=== PATIENT | male | born 1950 | race Caucasian/White ===

== ENCOUNTER 2021-04-12 13:09 | Emergency (ER) | payer MEDICARE, SELFPAY ==
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
[2021-04-12 14:19] VITALS: BP 142/71; PULSE 56; RESP 18; TEMP 36.6; O2SAT 94; BMI 25.7
[2021-04-12 14:26] VITALS: BP 117/68; PULSE 47; RESP 18; TEMP 36.6; O2SAT 98
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
[2021-04-12 16:30] VITALS: BP 117/68; PULSE 47; RESP 18; TEMP 36.6; O2SAT 98
== END 2021-04-12 16:30 | disposition home or self-care (01) ==
PROVIDERS: Emergency Provider Physician Assistant
DX: M54.5 Low back pain (principal); M54.2 Cervicalgia; V89.2XXA Person injured in unspecified motor-vehicle accident, traffic, initial encounter; Y92.410 Unspecified street and highway as the place of occurrence of the external cause
CPT/HCPCS: 72040; 72100; 99282

== ENCOUNTER 2021-04-29 11:00 | Outpatient (CLI) | payer MEDICARE, SELFPAY ==
--- NOTE | 2021-04-29 11:06 | XR_ITS ---
WS: [id number] THORACIC SPINE TECHNIQUE: AP and lateral views are performed. HISTORY: M54.9 - Dorsalgia, unspecified COMPARISON: None available. Moderate RIGHT curvature thoracic spine. Increase in thoracic kyphosis. Pedicles are all identified. No fractures. Fibrotic changes are noted over the LEFT thorax. XR/XR thoracic spine 3V* [id number] IMPRESSION: Moderate RIGHT curvature thoracic spine. No acute fractures identified.
--- NOTE | 2021-04-29 11:06 | XR_ITS ---
WS: [id number] RIGHT ELBOW: 3 VIEW(S) TECHNIQUE: AP, oblique and lateral. HISTORY: M25.529 - Pain in unspecified elbow COMPARISON: 02/17/2020 No acute fractures or dislocation. Soft tissue prominence over the olecranon has resolved. There is a hook like osteophyte involving the coronoid process. No soft tissue abnormality. XR/XR elbow RT min 3V* [id number] IMPRESSION: Hooklike osteophyte involving the coronoid process. No joint effusion.
== END 2021-04-29 11:01 | disposition home or self-care (01) ==
PROVIDERS: PCP Nurse Practitioner Family; Visit Provider Nurse Practitioner Family
DX: M25.521 Pain in right elbow (principal); M54.6 Pain in thoracic spine
CPT/HCPCS: 72072; 73080

== ENCOUNTER 2021-05-30 12:25 | Day surgery (SDC) | payer MEDICARE, SELFPAY ==
[2021-05-30] VITALS (8 sets, daily range): BP systolic 112–167; BP diastolic 69–95; PULSE 50–74; RESP 16–18; TEMP 36.1–36.5; O2SAT 95–98; BMI 24.4
--- NOTE | 2021-05-30 14:10 | ED_ITS ---
HPI - General Adult General: Chief complaint: Airway/Esophagus Foreign Body Stated complaint: FOOD BOLUS STUCK IN THROAT: SENT BY PCP Time Seen by Provider: 05/30/21 12:43 Source: patient Mode of arrival: ambulatory Limitations: no limitations History of Present Illness: HPI narrative: Patient states he is swallowing some meat approximately 3 days ago and states he is unable to pass meat in his distal esophagus. He reports that he has had 10 inches of his esophagus removed when he was a child after he drank lye at 1 years of age. He states he has had chronic problems with food sticking in his esophagus at the junction of the repair. States he is usually able to pass this without any intervention. He states he is unable to get food or fluids down now. Denies any other problems. Onset (ago): day(s) (3) Location: neck (Esophagus) Radiation: non-radiation Severity: moderate Severity scale (1-10): 1 Quality: aching Pain Consistency: constant Relieving factors: none Exacerbating factors: none Associated symptoms: Deny chest pain, confusion, cough, diaphoresis, decreased appetite, dyspnea, fevers/chills, headache(s), malaise, nausea, rash, palpitations, short of breath, syncope, vomiting or weakness Treatments prior to arrival: none Review of Systems Const: Denies: malaise or diaphoresis Eyes: Denies: change in vision ENMT: Reports: other (Inability to swallow due to food bolus); Denies: throat pain Card: Denies: chest pain, palpitations or syncope Resp: Denies: dyspnea GI: Denies: nausea or vomiting : Denies: flank pain Musc: Denies: neck pain or back pain Skin/Breast: Denies: rash Neuro: Denies: headache(s) or confusion Psych: Denies: anxiety Federico/Lymph: Denies: enlarged lymph nodes PFSH ED PFSH: Medical History Esophageal obstruction due to food impaction Surgical History H/O esophagogastroduodenoscopy (05/30/21) For food impaction History of esophageal surgery ate lye at age 2 had to have esophagel surgery Social History Smoking and tobacco status: never smoked Physical Exam Const: COMMON NORMALS: no acute distress, patient oriented x3, no limitations and well nourished GENERAL APPEARANCE: cooperative OTHER: Unable to swallow water. HENMT: COMMON NORMALS: normocephalic and atraumatic HEAD & SCALP: normocephalic and atraumatic FACE & SINUS: normal facial exam MOUTH: Normal oral and palatal mucosa present Eye: COMMON NORMALS: EOMs intact bilaterally Neck/C-Spine: COMMON NORMALS: full ROM, no lymphadenopathy, supple and no meningeal signs GENERAL: Yes normal visual inspection, Yes trachea midline and No anterior neck swelling Lymph: LYMPHATIC: no lymphadenopathy noted Chest: COMMONS NORMALS: normal inspection of the chest and normal palpation of entire chest wall CHEST: No Ecchymosis present and No rash Resp: COMMON NORMALS: normal respiratory effort, No retractions and clear to auscultation bilaterally EFFORT & INSPECTION: No respiratory distress AUSCULTATION: clear to auscultation bilaterally Cardio: COMMON NORMALS: regular rate, regular rhythm and Peripheral pulses 2+ throughout JUGULAR VENOUS DISTENTION: no JVD RATE: regular rate RHYTHM: regular rhythm PERIPHERAL PULSES: Peripheral pulses 2+ throughout GI: COMMON NORMALS: Normal to inspection, nondistended, normoactive bowel sounds present and non-tender : COMMON NORMALS: Yes no CVA tenderness BLADDER/KIDNEY EXAM: Yes no CVA tenderness Back/Pelvis: COMMON NORMALS: no CVA tenderness Extremity: COMMON NORMALS: normal to inspection, full ROM and capillary refill normal Neuro: COMMON NORMALS: patient oriented x3, CN's II-XII intact bilaterally, no focal motor deficits and no sensory deficits noted MENINGEAL SIGNS: Yes no meningeal signs Psych: COMMON NORMALS: mental status grossly normal and Normal thought process present THOUGHT PROCESS: Normal thought process present Skin: COMMON NORMALS: no rashes or lesions noted and no wounds GENERAL SKIN EXAM: no rashes or lesions noted Course Vital Signs: Vital signs: Vital Signs Temperature 97.7 F 05/30/21 12:34 Pulse Rate 60 05/30/21 16:30 Respiratory Rate 16 05/30/21 14:27 Blood Pressure 167/73 05/30/21 16:30 Pulse Oximetry 95 05/30/21 16:30 MDM - General Adult MDM Narrative: Medical decision making narrative: First attempt with glucagon was not successful. Patient still unable to swallow water. We will try atropine. 1525: no change after atropine. d/w dr. cordero windows application developer. he states he does not perform foreign body removal from the esophagus. Will need to refer to another provider that does this procedure. Dr. Alvarez will take the patient to endoscopy lab and discharge patient from there. Discharge Plan Discharge Clinical Impression: Esophageal foreign body Qualifiers: Encounter type: initial encounter Qualified Code(s): T18.108A - Unspecified foreign body in esophagus causing other injury, initial encounter Condition: Stable Coding Level of Care Code ED Systems Development Consultant for Chg Fwd Exam Comprehensive
[2021-05-30] MEDS: sodium chloride 0.9% 1,000 ML 30 ML IV (16:20)
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
--- NOTE | 2021-05-30 17:28 | P.PCN_ITS ---
PACU note PACU note: VSS, Good respiratory effort, report to MIX CHEMIST Post-Anesthesia Exam: awake
--- NOTE | 2021-05-30 17:28 | PM.PACU ---
PACU note PACU note: VSS, Good respiratory effort, report to VP PURCHASING Post-Anesthesia Exam: awake
== END 2021-05-30 17:54 | disposition home or self-care (01) ==
LOC: ER 15:40 → GILAB 16:21
PROVIDERS: Emergency Provider Family Medicine; PCP Nurse Practitioner Family; Visit Provider Surgery
PROC: 0DJ08ZZ Inspection of Upper Intestinal Tract, Via Natural or Artificial Opening Endoscopic (ICD-10-PCS; CPT 43235; principal; 2021-05-30 17:00)
DX: K22.2 Esophageal obstruction (principal); T17.228A Food in pharynx causing other injury, initial encounter
CPT/HCPCS: 43239; 43247; 43249; 88305; 96361; 96374; 96375; J0330; J0461; J1100; J1610; J2405; J2704; J3010; J3490; J7030

== ENCOUNTER 2021-07-20 03:09 | Emergency (ER) | payer MEDICARE, SELFPAY ==
[2021-07-20 03:23] VITALS: BP 126/68; PULSE 62; RESP 16; TEMP 37; O2SAT 94; BMI 24.4
[2021-07-20 03:49] VITALS: BP 136/62; PULSE 62; O2SAT 92
--- NOTE | 2021-07-20 04:00 | XRR_ITS ---
PROCEDURE INFORMATION: Exam: XR Chest Exam date and time: 07/20/2021 4:00 AM Age: 71 years old Clinical indication: Shortness of breath; Prior surgery; Surgery type: Esophageal. Left lobectomy. ; Patient HX: C/O SOB. General weakness. ; Additional info: SOB weak TECHNIQUE: Imaging protocol: XR of the chest. Views: 1 view. COMPARISON: CR XR thoracic spine 3V* [id number] 04/29/2021 11:40 AM FINDINGS: Lungs: Postsurgical changes are present in the left lung consistent with a lobectomy. There is bibasilar consolidation greater on the left side consistent with bibasilar pneumonia. Pleural spaces: Unremarkable. No pleural effusion. No pneumothorax. Heart/Mediastinum: Unremarkable. No cardiomegaly. Bones/joints: Unremarkable. XR/XR chest 1V portable [id number] IMPRESSION: Bibasilar pneumonia. Radiation Dose CTDIVOL = (mGy): DLP = (mGy-cm)
--- NOTE | 2021-07-20 04:01 | ECG_ITS ---
[facility] Test Date: 2021-07-20 Pat Name: Mateo Holland Department: Room: Gender: Male Research And Evaluation Analyst: : 1950 Requested By: Abner Aleman Order Number: [id number] Sudhir MD: Willem Fofana M.D. Measurements Intervals [place] Rate: 59 P: 62 MT: 150 QRS: 81 QRSD: 101 T: 56 QT: 443 QTc: 440 Interpretive Statements SINUS BRADYCARDIA No previous ECG available for comparison Electronically Signed On 07-21-2021 13:18:09 HOUSEKEEPING SUPERVISOR by Willem Fofana M.D. [email or web address]
[2021-07-20 04:08] LABS: Basophils % 0.2 %; Hemoglobin 13.3 g/dL (11.7-16.6); Lymphocytes # 0.9 10^3/uL (0.8-4.8); Lymphocytes % 18.6 %; Mean Corpuscular HGB Conc 34.1 g/dL (30.0-36.0); Mean Corpuscular Hemoglobin 29.9 pg (28.0-34.0); Mean Corpuscular Volume 87.6 fl (80-94); Mean Platelet Volume 11.4 fL (7.4-10.4); Monocytes # 0.6 10^3/uL (0.2-0.9); Monocytes % 12.2 %; Neutrophils # 3.36 10^3/uL (1.8-7.7); Neutrophils % 68.6 %; Nucleated Red Blood Cells % 0 %; Platelet Count 145 10^3/cmm (130-400); Red Blood Count 4.45 10^6/uL (4.1-5.3); Red Cell Distribution Width 12.8 % (12.1-15.1); White Blood Count 4.9 10^3/uL (4.0-10.0)
[2021-07-20 04:17] VITALS: BP 136/62; PULSE 58; O2SAT 93
[2021-07-20 04:22] LABS: D Dimer 0.75 ug/mIFEU (0-0.59)
[2021-07-20 04:27] LABS: Lactic Sepsis W/Reflex 0.8 mmol/L (0.5-2.2)
[2021-07-20 04:28] LABS: Troponin(5th) Baseline 12 ng/L (0-15)
[2021-07-20] MEDS: ketorolac 30 mg/mL INJ 15 MG IVP (04:37)
[2021-07-20 04:38] LABS: NT Pro B Type Natriuretic Pept 152 pg/mL (0-125); Procalcitonin 0.09 ng/mL (0-0.5)
[2021-07-20 04:43] VITALS: BP 136/62; PULSE 59; O2SAT 93
[2021-07-20 04:49] LABS: Alanine Aminotransferase 20 U/L (0-41); Albumin Level 3.7 g/dL (3.5-5.2); Alkaline Phosphatase 58 IU/L (40-130); Aspartate Amino Transferase 37 U/L (0-40); Blood Urea Nitrogen 17 mg/dL (8-23); C Reactive Protein 67.8 mg/L (0.0-4.9); Calcium 7.7 mg/dL (8.5-10.5); Carbon Dioxide 20 mmol/L (22-29); Chloride 93 mmol/L (98-107); Creatine Phosphokinase 48 U/L (39-308); Globulin 2.1 g/dL (1.3-4.6); Glucose 96 mg/dL (65-115); Osmolality Calculated 265 mOsm/kg (285-295); Sodium 127 mmol/L (136-145); Total Bilirubin 0.3 mg/dL (0.15-1.2); Total Protein 5.8 g/dL (6.6-8.7)
[2021-07-20 04:51] LABS: Anion Gap 18.5 (5-19); Potassium 4.5 mmol/L (3.5-5.1)
--- NOTE | 2021-07-20 05:16 | W.ED.GENADLT ---
HPI - General Adult General: Chief complaint: Shortness of Breath/Dyspnea Stated complaint: SOB\Weak Time Seen by Provider: 07/20/21 03:51 History of Present Illness: HPI narrative: 71-year-old gentleman who comes in complaining of generalized weakness and body aches he notes he has been this way for 4 days or so. He is not had symptoms like this before. He states he has mild shortness of breath, but no cough or congestion. No fever. No diarrhea or vomiting. Onset (ago): day(s) Radiation: non-radiation Severity: moderate Quality: aching Pain Consistency: constant Relieving factors: none Exacerbating factors: none Associated symptoms: Reports decreased appetite, dyspnea, nausea and weakness; Deny chest pain, confusion, cough, diaphoresis, fevers/chills, headache(s) or vomiting Review of Systems Const: Denies: diaphoresis Card: Denies: chest pain Resp: Reports: dyspnea GI: Reports: nausea; Denies: vomiting Neuro: Denies: headache(s) or confusion PFSH ED PFSH: Medical History (Updated 07/20/21 @ 05:56 by Abner Armijo DO) Esophageal obstruction due to food impaction Surgical History (Updated 05/30/21 @ 17:23 by Cristopher Alvarez MD) H/O esophagogastroduodenoscopy (05/30/21) For food impaction with balloon dilation to 15 mm History of esophageal surgery ate elliee at age 2 had to have esophagel surgery Social History Smoking and tobacco status: never smoked Physical Exam Const: COMMON NORMALS: no acute distress, patient oriented x3 and alert GENERAL APPEARANCE: cooperative and comfortable HENMT: COMMON NORMALS: normocephalic HEAD & SCALP: normocephalic FACE & SINUS: normal facial exam Eye: COMMON NORMALS: Equal, round and reactive pupils present and EOMs intact bilaterally PUPIL: Yes Equal, round and reactive pupils present Neck/C-Spine: COMMON NORMALS: full ROM Chest: COMMONS NORMALS: normal inspection of the chest Resp: COMMON NORMALS: normal respiratory effort, No use of accessory muscles and clear to auscultation bilaterally AUSCULTATION: clear to auscultation bilaterally Cardio: COMMON NORMALS: regular rate and regular rhythm RATE: regular rate RHYTHM: regular rhythm GI: COMMON NORMALS: Normal to inspection, nondistended, normoactive bowel sounds present and Soft to palpation PALPATION: Yes Soft to palpation Extremity: COMMON NORMALS: no clubbing, cyanosis or edema Neuro: COMMON NORMALS: patient oriented x3 SENSORIUM/ORIENTATION: Yes alert Course Vital Signs: Vital signs: Vital Signs Temperature 98.6 F 07/20/21 03:23 Pulse Rate 59 L 07/20/21 04:43 Respiratory Rate 16 07/20/21 03:23 Blood Pressure 136/62 07/20/21 04:43 Pulse Oximetry 93 07/20/21 04:43 MDM - General Adult MDM Narrative: Medical decision making narrative: 89-year-old gentleman with generalized weakness and body aches. His CBC is essentially normal. Sodium is mildly low at 127. Bicarbonate mildly low as well. His D-dimer is 0.75 first troponin is 17. Second 1 is pending his EKG shows a normal sinus bradycardia with a normal axis. His rapid COVID-19 test is positive. He has some mild infiltrates bilaterally in the bases of his lungs. His left lung is postsurgical. He satting 94 to 96% on room air with a normal blood pressure. He has accepted the monoclonal antibody infusion which she will be given this morning, and the discharged given no reaction. Lab Data: Labs: Lab Results 07/20/21 07/20/21 07/20/21 03:52 03:52 03:52 WBC 4.9 10^3/uL 10^3/ uL (4.0-10.0) RBC 4.45 10^6/uL 10^6 /uL (4.1-5.3) Hgb 13.3 g/dL g/dL (11.7-16.6) Hct 39.0 % L % (42.0-52.0) MCV 87.6 fl fl (80-94) MCH 29.9 pg pg (28.0-34.0) MCHC 34.1 g/dL g/dL (30.0-36.0) RDW 12.8 % % (12.1-15.1) Plt Count 145 10^3/cmm 10^3 /cmm (130-400) MPV 11.4 fL H fL (7.4-10.4) Neut % (Auto) 68.6 % % Lymph % (Auto) 18.6 % % [place] % (Auto) 12.2 % % Eos % (Auto) 0.0 % % Baso % (Auto) 0.2 % % Neut # (Auto) 3.36 10^3/uL 10^3 /uL (1.8-7.7) Lymph # (Auto) 0.9 10^3/uL 10^3/ uL (0.8-4.8) [place] # (Auto) 0.6 10^3/uL 10^3/ uL (0.2-0.9) Eos # (Auto) 0.0 10^3/uL 10^3/ uL (0.0-0.8) Baso # (Auto) 0.0 10^3/uL 10^3/ uL (0.0-0.1) Nucleated RBC % (a uto) 0 % % Nucleated RBCs # 0.0 /100WBC /100W BC D-Dimer 0.75 ug/mIFEU H u g/mIFEU (0-0.59) Sodium 127 mmol/L L mmol /L (136-145) Potassium 4.5 mmol/L mmol/L (3.5-5.1) Chloride 93 mmol/L L mmol/ L (98-107) Carbon Dioxide 20 mmol/L L mmol/ L (22-29) Anion Gap 18.5 (5-19) BUN 17 mg/dL mg/dL (8-23) Creatinine 0.9 mg/dL mg/dL (0.7-1.2) GFR Calculation Not Reportable Glucose 96 mg/dL mg/dL (65-115) Calculated Osmolal ity 265 mOsm/kg L mOs m/kg (285-295) Lactic Acid Calcium 7.7 mg/dL L mg/dL (8.5-10.5) Total Bilirubin 0.3 mg/dL mg/dL (0.15-1.2) AST 37 U/L U/L (0-40) ALT 20 U/L U/L (0-41) Alkaline Phosphata se 58 IU/L IU/L (40-130) Creatine Kinase 48 U/L U/L (39-308) Troponin T Baselin e C-Reactive Protein 67.8 mg/L H mg/L (0.0-4.9) NT-Pro-B Natriuret Pep 152 pg/mL H pg/mL (0-125) Total Protein 5.8 g/dL L g/dL (6.6-8.7) Albumin 3.7 g/dL g/dL (3.5-5.2) Globulin 2.1 g/dL g/dL (1.3-4.6) Procalcitonin 0.09 ng/mL ng/mL (0-0.5) SARS-CoV-2 Ag (Rap id) 07/20/21 07/20/21 07/20/21 03:52 03:52 04:39 WBC RBC Hgb Hct MCV MCH MCHC RDW Plt Count MPV Neut % (Auto) Lymph % (Auto) [place] % (Auto) Eos % (Auto) Baso % (Auto) Neut # (Auto) Lymph # (Auto) [place] # (Auto) Eos # (Auto) Baso # (Auto) Nucleated RBC % (a uto) Nucleated RBCs # D-Dimer Sodium Potassium Chloride Carbon Dioxide Anion Gap BUN Creatinine GFR Calculation Glucose Calculated Osmolal ity Lactic Acid 0.8 mmol/L mmol/L (0.5-2.2) Calcium Total Bilirubin AST ALT Alkaline Phosphata se Creatine Kinase Troponin T Baselin e 12 ng/L ng/L (0-15) C-Reactive Protein NT-Pro-B Natriuret Pep Total Protein Albumin Globulin Procalcitonin SARS-CoV-2 Ag (Rap id) Positive H (Negative) Discharge Plan Discharge Patient Disposition: Home Clinical Impression: COVID-19 Condition: Stable Prescriptions: No Action No Known Home Medications RF: 0 Discharge Orders: Discharge ED (Routine); Ordered 07/20/21 Ordered By: Abner Armijo Referrals: Nahomy Kruas FNP [Primary Care Provider] - 4-7 days Discharge Diet: Advance as tolerated Discharge Activity: Limit activity as instructed Activity Restrictions/Additional Instructions: You should quarantine at home until 07/26. Return to the emergency department for worsening aches, pains, shortness of breath, worsening fever, mental status changes, chest discomfort, any other concerning symptoms. Coding Level of Care Code ED Residence Life Coordinator for Gurpreet Fwd Exam Comprehensive
[2021-07-20 05:17] LABS: SARS Covid-2 Antigen Positive (Negative)
[2021-07-20 06:40] VITALS: BP 112/57; PULSE 51; RESP 16; O2SAT 94
[2021-07-20 07:38] LABS: Troponin 5 2HR 14.79 ng/L (0-15); Troponin 5 2HR Delta 2.79 ABS# (0-10)
[2021-07-20 08:08] VITALS: BP 105/52; PULSE 52; RESP 16; O2SAT 94
[2021-07-22 12:36] LABS: Erythrocyte Sedimentation Rate 25 mm/hr (0-10)
== END 2021-07-20 08:11 | disposition home or self-care (01) ==
PROVIDERS: Emergency Provider Emergency Medicine; PCP Nurse Practitioner Family
DX: U07.1 COVID-19 (principal)
CPT/HCPCS: 36415; 71045; 80053; 82550; 83605; 83880; 84145; 84484; 85025; 85378; 85651; 86140; 87426; 93005; 96365; 96375; 99284; J1885